=== PATIENT | female | born 1995 | race Caucasian/White ===

== ENCOUNTER 2025-07-18 23:05 | Emergency (ER) | payer OTHER, SELFPAY ==
[2025-07-18 23:18] VITALS: BP 145/61; PULSE 87; RESP 20; TEMP 36.9; O2SAT 97
== END 2025-07-19 02:14 | disposition left against medical advice (07) ==
LOC: ANHED 07-19 01:05
PROVIDERS: PCP Pediatrics
DX: R11.0 Nausea (principal)
CPT/HCPCS: 99199